=== PATIENT | female | born 1990 | race African-American/Black ===

== ENCOUNTER 2016-04-28 06:20 | Emergency (ER) | payer BC ==
[~2016-04-28] VITALS: Ht 162.6 cm; Wt 69.9 kg
[~2016-04-28 06:20] MED LIST: ROBITUSSIN100 MG/5 M
[2016-04-28 06:26] VITALS: BP 114/95
--- NOTE | 2016-04-28 06:32 | NUR ---
AMBULATED TO ER BED 4
--- NOTE | 2016-04-28 06:35 | NUR ---
PATIENT PRESENTS TO ED WITH FEVER OF 100.4 . PT STATES SHE HAS HAD CHILLS AND LOWER BACK PAIN X2DAYS . DENIES N/V/D; SKIN IS PINK/WARM/DRY; AAOX4 WITH EVEN AND STEADY GAIT; LUNGS CLEAR BL; HR EVEN AND REGULAR; PT DENIES ANY FEVER, CP, SOB, OR COUGH AT THIS TIME; PATIENT STATES PAIN OF 10/10 AT THIS TIME; VSS; PATIENT POSITIONED FOR COMFORT; HOB ELEVATED; BEDRAILS UP X2; BED DOWN. ER MD MADE AWARE OF PT STATUS. SIGNIFICANT OTHER AT BEDSIDE AT THIS TIME
[2016-04-28] MEDS ORDERED: IBUPROFEN 400 MG TAB ONE (06:45)
[2016-04-28] MEDS ORDERED: KETOROLAC 30 MG/ML VIAL IM ONE (06:55)
--- NOTE | 2016-04-28 07:19 | NUR ---
RECEIVED REPORT FROM ANJELICA WHITEHEAD.
[2016-04-28] MEDS ORDERED: cefTRIAXone 1,000 MG in LIDOCAINE 1% ED 2.1 ML IM ONE (07:25)
[2016-04-28 08:02] VITALS: BP 118/89
--- NOTE | 2016-04-28 08:02 | NUR ---
Patient discharged with v/s stable. Written and verbal after care instructions given and explained. Patient alert, oriented and verbalized understanding of instructions. [g ED.DCMODE] with [g ED.D/CMODE]. All questions addressed prior to discharge. ID band removed. Patient advised to follow up with PMD. Rx of ZOFRAN OPT, KEFLEX & MOTRIN given. Patient educated on indication of medication including possible reaction and side effects. Opportunity to ask questions provided and answered.
== END 2016-04-28 08:02 | disposition home or self-care (01) ==
LOC: MED 06:20
DX: N12 Tubulo-interstitial nephritis, not specified as acute or chronic (principal); J45.909 Unspecified asthma, uncomplicated; Z90.89 Acquired absence of other organs
CPT/HCPCS: 81001; 81025; 87086; 87186; 96372; 99284; J0696; J1885; J2001

== ENCOUNTER 2019-05-15 11:42 | Emergency (ER) | payer BC, MEDICAID ==
[~2019-05-15] VITALS: Ht 162.6 cm; Wt 71.7 kg
[2019-05-15 11:50] VITALS: BP 116/87
--- NOTE | 2019-05-15 11:56 | NUR ---
Patient ambulated to chair A. RN evaluating patient.
--- NOTE | 2019-05-15 11:59 | NUR ---
28 Y/O FEMALE C/O RT KNEE PAIN THAT RADIATES TO RT FOOT X 1 MONTH. DENIES TRAUMA/INJURY. NO DEFORMITY NOTED. PT ABLE TO AMBULATES, STATES INCREASED PAIN WITH MOVEMENT AND AMBULATION 8/10 CONSTANT THROBBING PAIN. STATES KNEE SWELLS IN THE MORNING. HAS NOT TAKEN ANY MEDICATION FOR PAIN. SITTING UPRIGHT AWAKE AND ALERT IN [place]. VSS MEDHX: DENIES ALLERGIES: NKA
--- NOTE | 2019-05-15 12:09 | NUR ---
Patient being evaluated by DR COATES at bedside.
[2019-05-15 12:28] VITALS: BP 116/87
== END 2019-05-15 12:28 | disposition home or self-care (01) ==
LOC: MED 11:42
DX: M25.561 Pain in right knee (principal); J45.909 Unspecified asthma, uncomplicated; Z90.49 Acquired absence of other specified parts of digestive tract; Z98.890 Other specified postprocedural states
CPT/HCPCS: 81002; 81025; 99282

== ENCOUNTER 2020-01-23 06:35 | Inpatient (IN) | payer MEDICAID, SELFPAY ==
[~2020-01-23] VITALS: Ht 162.6 cm; Wt 82.6 kg
[2020-01-23] MEDS ORDERED: CITRIC ACID/SODIUM CITRATE 30 ML UDC PO SCH (08:20)
--- NOTE | 2020-01-23 08:36 | NUR ---
PATIENT HAS BEEN SCREENED AND CATEGORIZED LOW NUTRITION RISK. PATIENT WILL BE SEEN WITHIN 7 DAYS OF ADMISSION. 01/29/[address]
[2020-01-23] MEDS: LACTATED RINGERS 1,000 ML IV SCH ×3 (08:44→16:56)
[2020-01-23 08:45] LABS: BASOPHILS % (AUTO) 0.5 % (0.0-2.0); EOSINOPHILS # (AUTO) 0.1 K/uL (0-0.4); EOSINOPHILS % (AUTO) 1.6 % (0.0-4.0); HEMATOCRIT 22.3 % (36-48); LYMPHOCYTES # (AUTO) 1.8 K/uL (2.5-16.5); LYMPHOCYTES % (AUTO) 29.6 % (20.5-51.1); MEAN CORPUSCULAR HEMOGLOBIN 22 pg (27-31); MEAN CORPUSCULAR HGB CONC 31 g/dL (33-37); MEAN CORPUSCULAR VOLUME 70.6 fL (80-94); MONOCYTES # (AUTO) 0.6 K/uL (0.8-1.0); MONOCYTES % (AUTO) 10.4 % (1.7-9.3); NEUTROPHILS # (AUTO) 3.4 K/uL (1.8-7.7); NEUTROPHILS % (AUTO) 57.9 % (42.2-75.2); PLATELET COUNT (AUTO) 218 K/uL (140-450); RED BLOOD CELL COUNT(AUTO) 3.16 MIL/uL (4.20-5.40); RED CELL DISTRIBUTION WIDTH 18.9 % (11.6-13.7); WHITE BLOOD COUNT (AUTO) 5.9 K/uL (4.8-10.8)
[2020-01-23 10:04] LABS: ALBUMIN 2.3 g/dL (3.4-5.0); ANION GAP 14.6 (8-16); CARBON DIOXIDE 22.3 mmol/L (21-32); CREATININE 0.6 mg/dL (0.6-1.3); POTASSIUM 3.9 mmol/L (3.5-5.1); TOTAL BILIRUBIN 0.2 mg/dL (0.0-1.0)
[2020-01-23 10:50] LABS: APPEARANCE,URINE HAZY (CLEAR); BILIRUBIN,URINE NEGATIVE (NEGATIVE); BLOOD, URINE NEGATIVE (NEGATIVE); COLOR,URINE YELLOW (YELLOW); LEUKOCYTE ESTERASE ,URINE TRACE (NEGATIVE); NITRITE, URINE NEGATIVE (NEGATIVE); UGLUCOSE NEGATIVE (NEGATIVE)
[2020-01-23 11:34] LABS: RBC,URINE NONE SEEN /HPF (0-5); WBC,URINE 0-5 /HPF (0-5)
[2020-01-23] MEDS ORDERED: NACL 0.9% 500 ML IV SCH (12:20)
[2020-01-23] MEDS ORDERED: CITRIC ACID/SODIUM CITRATE 30 ML UDC ONE (17:31)
[2020-01-23] MEDS ORDERED: METHYLERGONOVINE 0.2 MG/ML AMP IM PRN (17:35)
[2020-01-23] MEDS ORDERED: TEMAZEPAM 15 MG CAP PO PRN (17:35)
[2020-01-23] MEDS ORDERED: IBUPROFEN 800 MG TAB PO PRN (17:35)
[2020-01-23] MEDS ORDERED: OXYTOCIN 20 UNITS in LACTATED RINGERS 1,000 ML IV SCH (17:35)
[2020-01-23] MEDS ORDERED: MORPHINE PRES FREE 10 MG/10 ML AMP IV ONE (17:37)
[2020-01-23] MEDS ORDERED: ONDANSETRON 4 MG/2 ML VIAL ONE (18:38)
[2020-01-23] MEDS ORDERED: KETOROLAC 30 MG/ML VIAL IVP PRN (19:05)
[2020-01-23] MEDS ORDERED: NALOXONE 0.4 MG/ML VIAL IVP PRN ×2 (19:05)
[2020-01-23] MEDS ORDERED: ONDANSETRON 4 MG/2 ML VIAL IVP PRN (19:05)
[2020-01-23] MEDS ORDERED: OXYTOCIN 20 UNITS/LR PREMIX 1,000 ML IV ONE (19:20)
[2020-01-23] MEDS: OXYTOCIN 20 UNITS in LACTATED RINGERS 1,000 ML IV SCH ×2 (19:22→20:00)
[2020-01-23 20:42] LABS: BASOPHILS % (AUTO) 0.7 % (0.0-2.0); EOSINOPHILS # (AUTO) 0.1 K/uL (0-0.4); EOSINOPHILS % (AUTO) 0.9 % (0.0-4.0); HEMATOCRIT 27.2 % (36-48); HEMOGLOBIN 8.7 g/dL (12.0-16.0); LYMPHOCYTES # (AUTO) 1.5 K/uL (2.5-16.5); LYMPHOCYTES % (AUTO) 24.6 % (20.5-51.1); MEAN CORPUSCULAR HEMOGLOBIN 24 pg (27-31); MEAN CORPUSCULAR HGB CONC 32 g/dL (33-37); MEAN CORPUSCULAR VOLUME 73.7 fL (80-94); MONOCYTES # (AUTO) 0.4 K/uL (0.8-1.0); NEUTROPHILS # (AUTO) 4.3 K/uL (1.8-7.7); NEUTROPHILS % (AUTO) 67.8 % (42.2-75.2); PLATELET COUNT (AUTO) 202 K/uL (140-450); RED CELL DISTRIBUTION WIDTH 20.8 % (11.6-13.7); WHITE BLOOD COUNT (AUTO) 6.3 K/uL (4.8-10.8)
[2020-01-23] MEDS: DOCUSATE SOD/SENNA 50/8.6 MG 1 TAB PO SCH (21:00)
[2020-01-23] MEDS: diphenhydrAMINE 50 MG/ML VIAL IVP PRN (22:07)
[2020-01-24] MEDS: diphenhydrAMINE 50 MG/ML VIAL IVP PRN (03:20)
[2020-01-24] MEDS: OXYTOCIN 20 UNITS in LACTATED RINGERS 1,000 ML IV SCH ×3 (05:51→16:54)
[2020-01-24 06:13] LABS: BASOPHILS % (AUTO) 0.2 % (0.0-2.0); EOSINOPHILS # (AUTO) 0.1 K/uL (0-0.4); EOSINOPHILS % (AUTO) 0.5 % (0.0-4.0); HEMATOCRIT 26.2 % (36-48); HEMOGLOBIN 8.4 g/dL (12.0-16.0); LYMPHOCYTES # (AUTO) 1.4 K/uL (2.5-16.5); LYMPHOCYTES % (AUTO) 11.5 % (20.5-51.1); MEAN CORPUSCULAR HEMOGLOBIN 23 pg (27-31); MEAN CORPUSCULAR HGB CONC 32 g/dL (33-37); MONOCYTES # (AUTO) 0.9 K/uL (0.8-1.0); MONOCYTES % (AUTO) 7.3 % (1.7-9.3); NEUTROPHILS # (AUTO) 9.9 K/uL (1.8-7.7); NEUTROPHILS % (AUTO) 80.5 % (42.2-75.2); PLATELET COUNT (AUTO) 179 K/uL (140-450); RED BLOOD CELL COUNT(AUTO) 3.59 MIL/uL (4.20-5.40); RED CELL DISTRIBUTION WIDTH 20.2 % (11.6-13.7); WHITE BLOOD COUNT (AUTO) 12.3 K/uL (4.8-10.8)
[2020-01-24] MEDS: SIMETHICONE 80 MG TAB.CHEW PO PRN ×3 (08:34→20:28)
[2020-01-24] MEDS: KETOROLAC 30 MG/ML VIAL IVP PRN ×2 (15:01→20:29)
[2020-01-24] MEDS: DOCUSATE SOD/SENNA 50/8.6 MG 1 TAB PO SCH (20:28)
[2020-01-25] MEDS: oxyCODONE/APAP 5/325 MG 1 TAB TAB PO PRN ×3 (00:45→20:51)
[2020-01-25] MEDS: SIMETHICONE 80 MG TAB.CHEW PO PRN (07:36)
[2020-01-25] MEDS ORDERED: bisacodyL 10 MG SUPP RC SCH (08:30)
[2020-01-25] MEDS: DOCUSATE SOD/SENNA 50/8.6 MG 1 TAB PO SCH (20:52)
[2020-01-26] MEDS: oxyCODONE/APAP 5/325 MG 1 TAB TAB PO PRN (05:28)
[2020-01-26] MEDS ORDERED: IBUP-2213 PO (11:39)
[2020-01-26] MEDS ORDERED: FERR325E14 PO (11:39)
[2020-01-26] MEDS ORDERED: ACET-5629 PO (11:41)
== END 2020-01-26 15:15 | disposition home or self-care (01) | DRG 540 ==
LOC: MLD 06:35 → OBSVTOIN 08:17 → MFCC 20:35
PROVIDERS: ADMIT Obstetrics & Gynecology; ATTEND Obstetrics & Gynecology
PROC: 30233N1 Transfusion of Nonautologous Red Blood Cells into Peripheral Vein, Percutaneous Approach (ICD-10-PCS; 2020-01-23)
PROC: 10D00Z1 Extraction of Products of Conception, Low, Open Approach (ICD-10-PCS; principal; 2020-01-23 17:30)
DX: O34.211 Maternal care for low transverse scar from previous cesarean delivery (principal); O60.23X0 Term delivery with preterm labor, third trimester, not applicable or unspecified; Z37.2 Twins, both liveborn; O30.003 Twin pregnancy, unspecified number of placenta and unspecified number of amniotic sacs, third trimester; Z3A.37 37 weeks gestation of pregnancy; Z20.828 Contact with and (suspected) exposure to other viral communicable diseases
CPT/HCPCS: G0378 ×2; 36415; 51702; 80053; 81001; 85025; 86592; 86886; 86900; 86901; 86920; J0690; J1200; J1885; J2270; J2405; J2590; J7060; J7120; P9016

== ENCOUNTER 2020-11-21 08:37 | Emergency (ER) | payer MEDICAID, SELFPAY ==
[~2020-11-21] VITALS: Ht 162.6 cm; Wt 52.6 kg
[~2020-11-21 08:37] MED LIST changes: +ACET-5629 PO; +FERR325E14 PO; +IBUP-2213 PO; -ROBITUSSIN100 MG/5 M
[2020-11-21 08:40] VITALS: BP 153/91
--- NOTE | 2020-11-21 08:42 | NUR ---
PT AMBULATED TO BED 7
--- NOTE | 2020-11-21 09:00 | NUR ---
30 Y FEMALE C/O GENERALIZED ABDOMINAL PAIN, N/V/D X LAST NIGHT. PT STATED THE SYMPTOMS STARTED AROUND 12 PM LAST NIGHT AND AROUND 5 PM SHE STARTED TO EXPERINCE NON-STOP DIARRHEA. PT STATED SHE HAS ALSO HAD LIGHT MOON, CHILLS X LAST NIGHT. BOWEL SOUNDS ARE ACTIVE AND ABDOMEN IS TENDER TO TOUCH ON L SIDE. PT STATED SHE BEEN UNABLE TO KEEP ANY FOOD OR DRINKS DOWN WITH VOMITTING WELL. PMH: C SECTION NKA
--- NOTE | 2020-11-21 09:19 | NUR ---
DR. ZARATE BEDSIDE WITH PT
--- NOTE | 2020-11-21 09:19 | NUR ---
UA COLLECTED AND WALKED OVER TO LAB BY ANJELICA SANTIAGO
[2020-11-21] MEDS ORDERED: NACL 0.9% 1,000 ML IV ONE (09:25)
[2020-11-21] MEDS ORDERED: ONDANSETRON 4 MG/2 ML VIAL IVP ONE (09:25)
--- NOTE | 2020-11-21 09:35 | NUR ---
US TECH AT PT BEDSIDE.
[2020-11-21 09:55] LABS: BASOPHILS # (AUTO) 0.3 K/uL (0.00-0.22); BASOPHILS % (AUTO) 3.1 % (0.0-2.0); EOSINOPHILS # (AUTO) 0.1 K/uL (0-0.4); EOSINOPHILS % (AUTO) 0.6 % (0.0-4.0); HEMATOCRIT 34.9 % (36-48); HEMOGLOBIN 11.3 g/dL (12.0-16.0); LYMPHOCYTES # (AUTO) 0.9 K/uL (2.5-16.5); LYMPHOCYTES % (AUTO) 8.8 % (20.5-51.1); MEAN CORPUSCULAR HEMOGLOBIN 26 pg (27-31); MEAN CORPUSCULAR HGB CONC 32 g/dL (33-37); MEAN CORPUSCULAR VOLUME 81.4 fL (80-94); MONOCYTES # (AUTO) 0.7 K/uL (0.8-1.0); MONOCYTES % (AUTO) 7.2 % (1.7-9.3); NEUTROPHILS # (AUTO) 8.3 K/uL (1.8-7.7); NEUTROPHILS % (AUTO) 80.3 % (42.2-75.2); PLATELET COUNT (AUTO) 336 K/uL (140-450); RED BLOOD CELL COUNT(AUTO) 4.29 MIL/uL (4.20-5.40); RED CELL DISTRIBUTION WIDTH 15.7 % (11.6-13.7); WHITE BLOOD COUNT (AUTO) 10.3 K/uL (4.8-10.8)
[2020-11-21 10:07] LABS: ALBUMIN 3.7 g/dL (3.4-5.0); ANION GAP 16.6 (8-16); CREATININE 0.6 mg/dL (0.6-1.3); POTASSIUM 3.6 mmol/L (3.5-5.1); TOTAL BILIRUBIN 0.4 mg/dL (0.0-1.0)
--- NOTE | 2020-11-21 10:56 | NUR ---
Patient appears to be resting comfortably in bed with eyes open. Vital Signs within normal limits and charted. Respirations even and unlabored. Pt also provided with cup of water bedside. Will continue to monitor
--- NOTE | 2020-11-21 11:53 | NUR ---
PT AMBULATED TO RESTROOM WITH A STEADY GAIT.
[2020-11-21] MEDS ORDERED: DOXY1TCP PO (11:54)
[2020-11-21 12:07] VITALS: BP 126/84
--- NOTE | 2020-11-21 12:07 | NUR ---
Patient discharged with v/s stable. Written and verbal after care instructions given and explained. Patient alert, oriented and verbalized understanding of instructions. Ambulatory with steady gait. All questions addressed prior to discharge. ID band removed. Patient advised to follow up with PMD. Rx of DICLEGIS 10-10MG given. Patient educated on indication of medication including possible reaction and side effects. Opportunity to ask questions provided and answered.
== END 2020-11-21 12:07 | disposition home or self-care (01) ==
LOC: MED 08:37
DX: O21.8 Other vomiting complicating pregnancy (principal); O26.891 Other specified pregnancy related conditions, first trimester; R10.9 Unspecified abdominal pain; R19.7 Diarrhea, unspecified; M54.50 Low back pain, unspecified; E86.0 Dehydration; J45.909 Unspecified asthma, uncomplicated; Z79.899 Other long term (current) drug therapy; Z90.49 Acquired absence of other specified parts of digestive tract; Z98.890 Other specified postprocedural states; Z3A.01 Less than 8 weeks gestation of pregnancy
CPT/HCPCS: 36415; 76801; 76817; 80053; 81002; 81025; 83690; 84702; 85025; 96361; 96374; 99284; J2405; J7030; Q0092

== ENCOUNTER 2020-11-22 20:38 | Emergency (ER) | payer MEDICAID, SELFPAY ==
[~2020-11-22] VITALS: Ht 162.6 cm; Wt 73.5 kg
[~2020-11-22 20:38] MED LIST changes: +DOXY1TCP PO
[2020-11-22 20:42] VITALS: BP 129/78
--- NOTE | 2020-11-22 20:48 | NUR ---
TO ROOM AMBULATORY
--- NOTE | 2020-11-22 21:34 | NUR ---
30 YO/F BIB SELF W C/O GENERALIZED BODY HIVES W ITCHING BEGGINING AT 1500 XTODAY S/P TAKING A SHOWER, +ON GOING VAGINAL BLEEDING (MODERATE), AND DIARRHEA W X4 EPISODES XTODAY FOR 1 DAY. PATIENT DENIES ANY PAIN, SOB, CHEST PAIN, ABNORMAL VAGINAL DISCHARGE, N/V, OR URINE PROBLEMS. PATIENT DENIES USING ANY NEW SOAPS, OR CONSUMING NEW FOODS/DRINKS OR HAVING ANYTHING ELSE NEW. S1S2 PRESENT AND STEADY, LUNG SOUNDS CLEAR BL W BREATHING EVEN AND UNLABORED, BOWEL SOUNDS PRESENT. GENERALIZED BODY RASH NOTED. VSS. PATIENT LAYING IN BED IN L LATERAL POSITION W BED LOCKED IN LOWEST POSITION, X1 SIDERAIL UP. NAD NOTED WILL CONTINUE TO MONITOR. PMH:ASTHMA NKA
[2020-11-22] MEDS ORDERED: NACL 0.9% 1,000 ML IV ONE (22:15)
--- NOTE | 2020-11-22 22:40 | NUR ---
US AT BEDSIDE.
[2020-11-22 22:47] LABS: BASOPHILS % (AUTO) 0.4 % (0.0-2.0); EOSINOPHILS # (AUTO) 0.1 K/uL (0-0.4); HEMATOCRIT 34.5 % (36-48); HEMOGLOBIN 11.4 g/dL (12.0-16.0); LYMPHOCYTES # (AUTO) 1.9 K/uL (2.5-16.5); LYMPHOCYTES % (AUTO) 26.6 % (20.5-51.1); MEAN CORPUSCULAR HEMOGLOBIN 27 pg (27-31); MEAN CORPUSCULAR HGB CONC 33 g/dL (33-37); MEAN CORPUSCULAR VOLUME 81.7 fL (80-94); MONOCYTES % (AUTO) 14.4 % (1.7-9.3); NEUTROPHILS % (AUTO) 56.6 % (42.2-75.2); PLATELET COUNT (AUTO) 383 K/uL (140-450); RED BLOOD CELL COUNT(AUTO) 4.22 MIL/uL (4.20-5.40); RED CELL DISTRIBUTION WIDTH 15.8 % (11.6-13.7); WHITE BLOOD COUNT (AUTO) 7.1 K/uL (4.8-10.8)
[2020-11-22 23:05] LABS: ALBUMIN 3.5 g/dL (3.4-5.0); ANION GAP 15.1 (8-16); CARBON DIOXIDE 22.9 mmol/L (21-32); CREATININE 0.7 mg/dL (0.6-1.3); TOTAL BILIRUBIN 0.2 mg/dL (0.0-1.0)
[2020-11-22] MEDS ORDERED: diphenhydrAMINE 50 MG/ML VIAL IVP ONE (23:15)
--- NOTE | 2020-11-22 23:50 | NUR ---
PATIENT REPORTS IMPROVEMENT OF ITCHING. PATIENT LAYING IN BED IN L LATERAL POSITION W X1 SIDERAIL UP. BREATHING EVEN AND UNLABORED. CONNECTED TO MONITOR W VSS.
--- NOTE | 2020-11-23 00:10 | NUR ---
PATIENT APPEARS TO BE RESTING W EYES CLOSED IN L LATERAL POSITION W X1 SIDERAIL UP. PATIENT HAS BLANKET ON. CONNECTED TO MONITOR W VSS.
--- NOTE | 2020-11-23 00:56 | NUR ---
PATIENT W C/O TEMPORAL HEADACHE 08/24 NON-RADIATING. DENIES BLURRY VISION, OR NAUSEA. REQUESTING PAIN MEDICATION. ERMD MADE AWARE. PATIENT REPORTS HIVE WELTS HAVE IMPROVED. MINIMAL HIVES NOTED TO LEGS, ABDOMINAL HIVES NOT PRESENT ANYMORE. VSS.
[2020-11-23] MEDS ORDERED: MORPHINE SULFATE 2 MG/ML SYR IVP ONE (01:05)
[2020-11-23] MEDS ORDERED: ACETAMINOPHEN 325 MG TAB PO ONE (01:10)
[2020-11-23] MEDS ORDERED: DIPH25TA53 PO (01:32)
[2020-11-23] MEDS ORDERED: ONDA-24 SL (01:32)
[2020-11-23 01:35] VITALS: BP 120/78
--- NOTE | 2020-11-23 01:35 | NUR ---
Patient discharged with v/s stable. Written and verbal after care instructions given and explained BY BRITTNY RODRIGUEZ. Patient alert, oriented and verbalized understanding of instructions. Ambulatory with steady gait. All questions addressed prior to discharge. ID band removed. Patient advised to follow up with PMD. Rx BENADRYL, ZOFRAN ODT of given. Patient educated on indication of medication including possible reaction and side effects. Opportunity to ask questions provided and answered.
== END 2020-11-23 01:35 | disposition home or self-care (01) ==
LOC: MED 20:38
DX: O99.711 Diseases of the skin and subcutaneous tissue complicating pregnancy, first trimester (principal); O20.8 Other hemorrhage in early pregnancy; O21.8 Other vomiting complicating pregnancy; O26.891 Other specified pregnancy related conditions, first trimester; L50.9 Urticaria, unspecified; J45.909 Unspecified asthma, uncomplicated; Z79.899 Other long term (current) drug therapy; Z90.49 Acquired absence of other specified parts of digestive tract; Z98.890 Other specified postprocedural states; Z3A.09 9 weeks gestation of pregnancy
CPT/HCPCS: 36415; 76801; 80053; 84702; 85025; 86900; 86901; 96361; 96374; 99285; J1200; J7030; Q0092

== ENCOUNTER 2020-11-25 19:23 | Emergency (ER) | payer MEDICAID ==
[~2020-11-25] VITALS: Ht 162.6 cm; Wt 73.9 kg
[~2020-11-25 19:23] MED LIST changes: +DIPH25TA53 PO; +ONDA-24 SL
--- NOTE | 2020-11-25 19:28 | NUR ---
30 YO/F BIB SELF W C/O OF VAGINAL BLEEDING BEGINNING X4 DAYS AGO BUT BECAME HEAVY XTODAY W BLOOD CLOTS. + ABDOMINAL CRAMPING 09/24 X 4 DAYS WORSENING TODAY. PATIENT REPORTS SHE IS APPROXIMATELY 6 WEEKS , WAS HERE X2 DAYS AGO BUT SYMPTOMS HAVE WORSEN. PATIENT DENIES ANY DIZZYNESS, N/V/D. BOWEL SOUNDS PRESENT, ABDOMEN SOFT AND TENDER TO TOUCH. VAGINAL BLEEDING NOTED ON TOWEL + BLOOD CLOTS. ERMD AWARE. PATIENT LAYING IN BED LOCKED IN LOWEST POSITION W X1 SIDERAIL UP. VSS ON MONITOR. BREATHING EVEN AND UNLABORED. NAD NOTED, WILL CONTINUE TO MONITOR. PMH:DENIES NKA
[2020-11-25 19:33] VITALS: BP 128/78
--- NOTE | 2020-11-25 19:38 | NUR ---
PT TAKEN TO BED 5
--- NOTE | 2020-11-25 20:10 | NUR ---
Dr. Cartwright examining patient.
--- NOTE | 2020-11-25 20:35 | NUR ---
Female Ged Instructor accompanied female patient for Pelvic Exam.
[2020-11-25 20:56] LABS: BASOPHILS % (AUTO) 0.7 % (0.0-2.0); EOSINOPHILS # (AUTO) 0.3 K/uL (0-0.4); EOSINOPHILS % (AUTO) 4.3 % (0.0-4.0); HEMATOCRIT 32.6 % (36-48); HEMOGLOBIN 10.7 g/dL (12.0-16.0); LYMPHOCYTES # (AUTO) 2.4 K/uL (2.5-16.5); LYMPHOCYTES % (AUTO) 37.2 % (20.5-51.1); MEAN CORPUSCULAR HEMOGLOBIN 27 pg (27-31); MEAN CORPUSCULAR HGB CONC 33 g/dL (33-37); MEAN CORPUSCULAR VOLUME 81.6 fL (80-94); MONOCYTES # (AUTO) 0.9 K/uL (0.8-1.0); MONOCYTES % (AUTO) 13.6 % (1.7-9.3); NEUTROPHILS # (AUTO) 2.9 K/uL (1.8-7.7); NEUTROPHILS % (AUTO) 44.2 % (42.2-75.2); PLATELET COUNT (AUTO) 414 K/uL (140-450); RED BLOOD CELL COUNT(AUTO) 3.99 MIL/uL (4.20-5.40); RED CELL DISTRIBUTION WIDTH 16.1 % (11.6-13.7); WHITE BLOOD COUNT (AUTO) 6.5 K/uL (4.8-10.8)
[2020-11-25 21:06] LABS: CARBON DIOXIDE 27.4 mmol/L (21-32); CREATININE 0.6 mg/dL (0.6-1.3); POTASSIUM 3.4 mmol/L (3.5-5.1)
[2020-11-25] MEDS: KETOROLAC 15 MG/ML VIAL IM ONE (21:19)
[2020-11-25 21:24] LABS: APPEARANCE,URINE CLEAR (CLEAR); BILIRUBIN,URINE NEGATIVE (NEGATIVE); BLOOD, URINE 3+ (NEGATIVE); COLOR,URINE ORANGE (YELLOW); LEUKOCYTE ESTERASE ,URINE NEGATIVE (NEGATIVE); NITRITE, URINE NEGATIVE (NEGATIVE); UGLUCOSE NEGATIVE (NEGATIVE)
[2020-11-25 21:40] LABS: RBC,URINE 80-100 /HPF (0-5); WBC,URINE 0-5 /HPF (0-5)
[2020-11-25 21:56] VITALS: BP 108/66
--- NOTE | 2020-11-25 21:56 | NUR ---
Patient discharged with v/s stable. Written and verbal after care instructions given and explained. Patient verbalized understanding. Ambulatory with steady gait. All questions addressed prior to discharge. Advised to follow up with PMD.
== END 2020-11-25 21:56 | disposition home or self-care (01) ==
LOC: MED 19:23
DX: O20.0 Threatened abortion (principal); J45.909 Unspecified asthma, uncomplicated; F17.210 Nicotine dependence, cigarettes, uncomplicated; F12.90 Cannabis use, unspecified, uncomplicated; Z3A.01 Less than 8 weeks gestation of pregnancy; Z79.899 Other long term (current) drug therapy
CPT/HCPCS: 36415; 76801; 80048; 81001; 81025; 84702; 85025; 96372; 99284; J1885; Q0092

== ENCOUNTER 2020-12-06 14:49 | Emergency (ER) | payer MEDICAID ==
[~2020-12-06] VITALS: Ht 134.6 cm; Wt 73.5 kg
[2020-12-06 14:53] VITALS: BP 118/64
--- NOTE | 2020-12-06 15:00 | NUR ---
Patient ambulated to bed 04 with steady/even gait.
--- NOTE | 2020-12-06 15:05 | NUR ---
30 y/o F BIB self from home c/o light bleeding/discharge and new onset of abdominal pain, vaginal discharge and smell. Patient A&Ox4, ambulatory, reports seen here one week ago for miscarriage and followed up at [facility] on the advised of miscarriage and bleeding will continue. Patient initially reported heavy clots with bleeding and increased abdominal pain. Patient reports since [facility] visit 2 days ago, suprapubic 5/10, cramping/intermittent, non-radiating pain. Patient reports light spotting without saturating pads. Patient denies nausea, vomiting, diarrhea, fever, chills, SOB, chest pain, dizziness, headache, dysuria, urinary symptoms. Patient denies any medications prior to arrival. Pt placed into a gown. Bed locked in lowest position, side rails x 1, call light in reach. G7 T6 L6. Last BM: yesterday, normal. PMH/Sx/Meds: / Denies NKA
--- NOTE | 2020-12-06 15:09 | NUR ---
Pt to restroom for urine sample
--- NOTE | 2020-12-06 15:25 | NUR ---
Dr. Martinez is evaluating patient at bedside
--- NOTE | 2020-12-06 15:45 | NUR ---
US tech at bedside
[2020-12-06 15:54] LABS: BASOPHILS % (AUTO) 0.7 % (0.0-2.0); EOSINOPHILS # (AUTO) 0.2 K/uL (0-0.4); EOSINOPHILS % (AUTO) 3.6 % (0.0-4.0); HEMATOCRIT 29.3 % (36-48); HEMOGLOBIN 9.6 g/dL (12.0-16.0); LYMPHOCYTES # (AUTO) 1.8 K/uL (2.5-16.5); LYMPHOCYTES % (AUTO) 32.8 % (20.5-51.1); MEAN CORPUSCULAR HEMOGLOBIN 27 pg (27-31); MEAN CORPUSCULAR HGB CONC 33 g/dL (33-37); MEAN CORPUSCULAR VOLUME 81.6 fL (80-94); MONOCYTES # (AUTO) 0.7 K/uL (0.8-1.0); MONOCYTES % (AUTO) 12.9 % (1.7-9.3); NEUTROPHILS # (AUTO) 2.7 K/uL (1.8-7.7); PLATELET COUNT (AUTO) 441 K/uL (140-450); RED BLOOD CELL COUNT(AUTO) 3.59 MIL/uL (4.20-5.40); WHITE BLOOD COUNT (AUTO) 5.4 K/uL (4.8-10.8)
[2020-12-06 16:01] LABS: APPEARANCE,URINE CLOUDY (CLEAR); BILIRUBIN,URINE NEGATIVE (NEGATIVE); BLOOD, URINE 3+ (NEGATIVE); COLOR,URINE YELLOW (YELLOW); LEUKOCYTE ESTERASE ,URINE 1+ (NEGATIVE); NITRITE, URINE NEGATIVE (NEGATIVE); UGLUCOSE NEGATIVE (NEGATIVE)
[2020-12-06 16:12] LABS: ALBUMIN 3.3 g/dL (3.4-5.0); ANION GAP 11.6 (8-16); CARBON DIOXIDE 26.6 mmol/L (21-32); CREATININE 0.6 mg/dL (0.6-1.3); POTASSIUM 3.2 mmol/L (3.5-5.1); TOTAL BILIRUBIN 0.2 mg/dL (0.0-1.0)
[2020-12-06 16:16] LABS: RBC,URINE 0-5 /HPF (0-5)
--- NOTE | 2020-12-06 17:58 | NUR ---
PATIENT ELOPED FROM FACILITY. DISCHARGE INSTRUCTIONS NOT GIVEN TO PATIENT. DR. ZAMUDIO NOTIFIED. PTS IV REMOVED.
== END 2020-12-06 17:58 | disposition left against medical advice (07) ==
LOC: MED 14:49
DX: O03.9 Complete or unspecified spontaneous abortion without complication (principal); J45.909 Unspecified asthma, uncomplicated; Z79.899 Other long term (current) drug therapy
CPT/HCPCS: 36415; 76817; 80053; 81001; 81025; 84702; 85025; 86900; 86901; 87086; 99284; Q0092

== ENCOUNTER 2020-12-09 22:20 | Emergency (ER) | payer MEDICAID ==
[~2020-12-09] VITALS: Ht 162.6 cm; Wt 72.6 kg
[2020-12-09 22:31] VITALS: BP 132/85
--- NOTE | 2020-12-09 22:34 | NUR ---
TO LOBBY A/W BED AMBULATORY
[2020-12-10] MEDS ORDERED: MISOPROSTOL 100 MCG TAB PO ONE (00:05)
[2020-12-10] MEDS ORDERED: KETOROLAC 60 MG/2 ML VIAL IM ONE (00:05)
[2020-12-10 00:07] LABS: BASOPHILS # (AUTO) 0.1 K/uL (0.00-0.22); BASOPHILS % (AUTO) 0.7 % (0.0-2.0); EOSINOPHILS # (AUTO) 0.3 K/uL (0-0.4); HEMATOCRIT 28.8 % (36-48); HEMOGLOBIN 9.5 g/dL (12.0-16.0); LYMPHOCYTES # (AUTO) 2.4 K/uL (2.5-16.5); LYMPHOCYTES % (AUTO) 33.2 % (20.5-51.1); MEAN CORPUSCULAR HEMOGLOBIN 27 pg (27-31); MEAN CORPUSCULAR HGB CONC 33 g/dL (33-37); MEAN CORPUSCULAR VOLUME 80.8 fL (80-94); MONOCYTES # (AUTO) 0.9 K/uL (0.8-1.0); MONOCYTES % (AUTO) 12.7 % (1.7-9.3); NEUTROPHILS # (AUTO) 3.7 K/uL (1.8-7.7); NEUTROPHILS % (AUTO) 49.4 % (42.2-75.2); PLATELET COUNT (AUTO) 493 K/uL (140-450); RED BLOOD CELL COUNT(AUTO) 3.57 MIL/uL (4.20-5.40); RED CELL DISTRIBUTION WIDTH 15.7 % (11.6-13.7); WHITE BLOOD COUNT (AUTO) 7.4 K/uL (4.8-10.8)
[2020-12-10 00:21] LABS: POTASSIUM 3.9 mmol/L (3.5-5.1)
[2020-12-10 00:22] LABS: ANION GAP 11.4 (8-16); CARBON DIOXIDE 29.5 mmol/L (21-32); CREATININE 0.7 mg/dL (0.6-1.3)
[2020-12-10 00:46] LABS: TOTAL BILIRUBIN 0.1 mg/dL (0.0-1.0)
[2020-12-10 00:47] LABS: ALBUMIN 3.4 g/dL (3.4-5.0)
[2020-12-10] MEDS ORDERED: MISOPROSTOL 200 MCG TAB ONE (01:10)
[2020-12-10] MEDS ORDERED: IBUP-2218 PO (01:19)
[2020-12-10 01:40] VITALS: BP 121/90
== END 2020-12-10 01:40 | disposition home or self-care (01) ==
LOC: MED 22:20
DX: O20.0 Threatened abortion (principal); J45.909 Unspecified asthma, uncomplicated; Z3A.08 8 weeks gestation of pregnancy; Z79.899 Other long term (current) drug therapy
CPT/HCPCS: 36415; 80053; 81002; 84702; 85025; 99283; J1885

== ENCOUNTER 2021-07-19 10:44 | Emergency (ER) | payer MEDICAID ==
[~2021-07-19] VITALS: Ht 160 cm; Wt 67.6 kg
[~2021-07-19 10:44] MED LIST changes: +IBUP-2218 PO; +ONDA-188 SL; -ONDA-24 SL
[2021-07-19 11:01] VITALS: BP 135/89
--- NOTE | 2021-07-19 11:04 | NUR ---
PT TAKEN TO LOBBY.
[2021-07-19] MEDS ORDERED: DEXAMETHASONE 4 MG/ML VIAL PO ONE (12:05)
[2021-07-19] MEDS ORDERED: ACETAMINOPHEN 650 MG/20.3 ML UDC PO ONE (12:05)
--- NOTE | 2021-07-19 12:08 | NUR ---
PER ADMITTING PT LWBS. STATED "I AM NOT GOING TO WAIT THIS LONG FOR A DR TO SEE ME". ERMD MADE AWARE.
== END 2021-07-19 12:08 | disposition left against medical advice (07) ==
LOC: MED 10:44
DX: J02.9 Acute pharyngitis, unspecified (principal); Z53.21 Procedure and treatment not carried out due to patient leaving prior to being seen by health care provider

== ENCOUNTER 2021-07-19 18:23 | Emergency (ER) | payer MEDICAID ==
--- NOTE | 2021-07-19 18:36 | NUR ---
PT CALLED IN LOBBY FOR [place], NO ANSWER.
--- NOTE | 2021-07-19 19:05 | NUR ---
CALLED FOR THE SECOND TIME , LUCIA
--- NOTE | 2021-07-19 19:15 | NUR ---
CALLED FOR THE THIRD TIME , NO RESPONSE
== END 2021-07-19 18:36 | disposition left against medical advice (07) ==
LOC: MED 18:23
DX: Z53.21 Procedure and treatment not carried out due to patient leaving prior to being seen by health care provider (principal)

== ENCOUNTER 2021-10-14 15:08 | Emergency (ER) | payer MEDICAID ==
[~2021-10-14] VITALS: Ht 162.6 cm; Wt 71.3 kg
[2021-10-14 15:22] VITALS: BP 126/76
--- NOTE | 2021-10-14 16:05 | NUR ---
30/F PRESENTS TO ED WITH C/O ACHING LIKE HEADACHE, CHILLS, AND FEVER XLAST NIGHT. 102 FEVER THIS MORNING, TOOK MOTRIN. TEMP 98 UPON ARRIVAL TO ED, PATIENT DENIES RECENT SICK CONTACTS.
--- NOTE | 2021-10-14 16:29 | NUR ---
HARJEET AND FLU SWABS COLLECTED AND WALKED TO LAB
--- NOTE | 2021-10-14 18:07 | NUR ---
Patient discharged with v/s stable. Written and verbal after care instructions ABOUT URI given and explained. Patient verbalized understanding. Ambulatory with steady gait. All questions addressed prior to discharge. Advised to follow up with PMD.
== END 2021-10-14 18:07 | disposition home or self-care (01) ==
LOC: MED 15:08
DX: U07.1 COVID-19 (principal); J45.909 Unspecified asthma, uncomplicated; Z79.899 Other long term (current) drug therapy
CPT/HCPCS: 99283